=== PATIENT | female | born 1995 | race American Indian/Alaskan Native ===

== ENCOUNTER 2020-10-12 11:28 | Emergency (ER) | payer MEDICAID ==
--- NOTE | 2020-10-12 13:54 | Emergency Department Report ---
ED ENT HPI - General Chief complaint: Earache Stated complaint: LT EAR POSSIBLE INFECTION Time Seen by Provider: 10/12/20 11:42 Source: patient Mode of arrival: Ambulatory Limitations: No Limitations - History of Present Illness Initial comments: This is a 24-year-old female brought by mother nontoxic, well nourished in appearance, no acute signs of distress presents to the ED with c/o of left earache and decreased hearing x1 day. Patient denies any ear drainage. Patient denies any trauma to the area. Patient denies any mastoid tenderness or tragus tenderness. Patient denies any fever, chills, nausea, vomiting, chest pain, short of breath, headache or stiff neck. Patient denies any drug allergies or significant past medical history. MD complaint: ear pain -: days(s) Location: L ear Severity: mild Severity scale (0 -10): 8 Quality: aching Consistency: constant Improves with: none Worsens with: none Associated Symptoms: tinnitus, hearing loss. denies: fever, cough, gum swelling, toothache, pain with swallowing, sore throat, discharge from ear, rhinorrhea - Related Data Allergies Allergy/AdvReac Type Severity Reaction Status Date / Time No Known Allergies Allergy Unverified 10/12/20 11:39 ED Dental HPI - General Chief complaint: Earache Stated complaint: LT EAR POSSIBLE INFECTION Time Seen by Provider: 10/12/20 11:42 Source: patient Mode of arrival: Ambulatory Limitations: No Limitations - Related Data Allergies Allergy/AdvReac Type Severity Reaction Status Date / Time No Known Allergies Allergy Unverified 10/12/20 11:39 ED Review of Systems ROS: Stated complaint: LT EAR POSSIBLE INFECTION Other details as noted in HPI Comment: All other systems reviewed and negative Constitutional: denies: chills, fever Eyes: denies: eye pain, eye discharge, vision change ENT: hearing loss. denies: ear pain, throat pain, dental pain, epistaxis, congestion Respiratory: denies: cough, shortness of breath, wheezing Cardiovascular: denies: chest pain, palpitations Endocrine: no symptoms reported Gastrointestinal: denies: abdominal pain, nausea, diarrhea Genitourinary: denies: urgency, dysuria, discharge Musculoskeletal: denies: back pain, joint swelling, arthralgia Skin: denies: rash, lesions Neurological: denies: headache, weakness, paresthesias Psychiatric: denies: anxiety, depression Hematological/Lymphatic: denies: easy bleeding, easy bruising ED Past Medical Hx - Past Medical History Previous Medical History?: No - Surgical History Additional Surgical History: CSECTION - Social History Smoking Status: Never Smoker Substance Use Type: None ED Physical Exam - General Limitations: No Limitations General appearance: alert, in no apparent distress - Head Head exam: Present: atraumatic, normocephalic - Eye Eye exam: Present: normal appearance - Expanded ENT Exam Expanded TM/Canal exam: Cerumen Impaction: Left TM, Right TM Mouth exam: Present: normal external inspection, tongue normal. Absent: drooling, trismus, muffled voice Teeth exam: Present: normal inspection Throat exam: Positive: normal inspection. Negative: tonsillar erythema, tonsillomegaly, tonsillar exudate, R peritonsillar mass, L peritonsillar mass - Neck Neck exam: Present: normal inspection, full ROM. Absent: lymphadenopathy - Respiratory Respiratory exam: Absent: respiratory distress - Cardiovascular Cardiovascular Exam: Present: regular rate - Extremities Exam Extremities exam: Present: full ROM - Back Exam Back exam: Present: full ROM - Neurological Exam Neurological exam: Present: alert, oriented X3, normal gait - Psychiatric Psychiatric exam: Present: normal affect, normal mood - Skin Skin exam: Present: warm, dry, intact, normal color. Absent: rash ED Course - Reevaluation(s) Reevaluation #1: 10/12/20 13:52 Patient is speaking in full sentences with no signs of distress noted. ED Medical Decision Making - Medical Decision Making 24-year-old female that presents with cerumen impaction. Patient stable and was examined by me. Patient Was waiting for a room to go to fast track so I can clean the cercumen and reexamine tympanic membrane but patient was not in the waiting room. Patient was called by planer off bearer which stated that she left eloped. I was not aware of this. I did tell planer off bearer to tell the patient that she needs to come back for further valuation and treatment. Critical care attestation.: If time is entered above; I have spent that time in minutes in the direct care of this critically ill patient, excluding procedure time. ED Disposition Clinical Impression: Left ear impacted cerumen Disposition: Z- ELOPED Is pt being admited?: No Does the pt Need Aspirin: No Condition: Undetermined Time of Disposition: 13:54
[2020-10-12 13:55] VITALS: BP 104/58
== END 2020-10-12 13:41 | disposition left against medical advice (07) ==
LOC: ED 11:28
DX: H61.22 Impacted cerumen, left ear (principal); Z98.890 Other specified postprocedural states
CPT/HCPCS: 99282

== ENCOUNTER 2020-10-14 11:42 | Emergency (ER) | payer MEDICAID ==
[2020-10-14 11:55] VITALS: BP 109/57
--- NOTE | 2020-10-14 12:18 | Emergency Department Report ---
ED ENT HPI - General Chief complaint: Earache Stated complaint: EAR PAIN Time Seen by Provider: 10/14/20 12:14 Source: patient Mode of arrival: Ambulatory Limitations: No Limitations - History of Present Illness Initial comments: 24-year-old -[place] female presents to the emergency room for left ear pain x3 days. Patient states he has decreased hearing in the left ear. She denies any discharge from the ear she does state it rains. Denies any chest pain no shortness of breath no fever no chills. Currently taking vitamins. Patient is 22 weeks . Patient is being followed by [facility] MD complaint: ear pain Onset/Timin -: days(s) Location: L ear Severity scale (0 -10): 9 Quality: stabbing, aching, sharp Consistency: constant Improves with: none Worsens with: rest Associated Symptoms: tinnitus, hearing loss. denies: fever, cough, gum swelling, toothache, pain with swallowing, sore throat, discharge from ear, rhinorrhea - Related Data Previous Rx's Medication Instructions Recorded Last Taken Type Amoxicillin [Trimox CAP] 500 mg PO Q8H 7 Days #21 capsule 10/14/20 Unknown Rx Carbamide Peroxide [Ear Wax 15 ml OT ONCE #1 kit 10/14/20 Unknown Rx Removal] Allergies Allergy/AdvReac Type Severity Reaction Status Date / Time No Known Allergies Allergy Unverified 10/12/20 11:39 ED Dental HPI - General Chief complaint: Earache Stated complaint: EAR PAIN Time Seen by Provider: 10/14/20 12:14 Source: patient Mode of arrival: Ambulatory Limitations: No Limitations - Related Data Previous Rx's Medication Instructions Recorded Last Taken Type Amoxicillin [Trimox CAP] 500 mg PO Q8H 7 Days #21 capsule 10/14/20 Unknown Rx Carbamide Peroxide [Ear Wax 15 ml OT ONCE #1 kit 10/14/20 Unknown Rx Removal] Allergies Allergy/AdvReac Type Severity Reaction Status Date / Time No Known Allergies Allergy Unverified 10/12/20 11:39 ED Review of Systems ROS: Stated complaint: EAR PAIN Other details as noted in HPI Comment: All other systems reviewed and negative ED Past Medical Hx - Past Medical History Previous Medical History?: No - Surgical History Past Surgical History?: Yes Additional Surgical History: CSECTION - Social History Smoking Status: Never Smoker Substance Use Type: None - Medications Home Medications: Home Medications Medication Instructions Recorded Confirmed Last Taken Type Amoxicillin [Trimox CAP] 500 mg PO Q8H 7 Days #21 capsule 10/14/20 Unknown Rx Carbamide Peroxide [Ear Wax 15 ml OT ONCE #1 kit 10/14/20 Unknown Rx Removal] ED Physical Exam - General Limitations: No Limitations General appearance: alert, in no apparent distress - Head Head exam: Present: atraumatic, normocephalic - Eye Eye exam: Present: normal appearance - ENT ENT exam: Present: normal exam - Expanded ENT Exam Expanded TM/Canal exam: Cerumen Impaction: Right TM, Left TM - Respiratory Respiratory exam: Absent: accessory muscle use - Cardiovascular Cardiovascular Exam: Present: regular rate - GI/Abdominal GI/Abdominal exam: Present: soft, normal bowel sounds - Extremities Exam Extremities exam: Present: normal inspection - Back Exam Back exam: Present: normal inspection, full ROM - Neurological Exam Neurological exam: Present: alert, oriented X3, normal gait - Psychiatric Psychiatric exam: Present: normal affect, normal mood - Skin Skin exam: Present: warm, dry, intact, normal color. Absent: rash ED Course Vital Signs 10/14/20 11:53 Temperature 98.6 F Pulse Rate 95 H Respiratory 13 Rate Blood Pressure 109/57 O2 Sat by Pulse 99 Oximetry ED Medical Decision Making - Medical Decision Making 24-year-old -[place] female presents to the emergency room for left ear pain x3 days. Patient states he has decreased hearing in the left ear. She denies any discharge from the ear she does state it rains. Denies any chest pain no shortness of breath no fever no chills. Currently taking vitamins. Patient is 22 weeks . Patient is being followed by [facility] Bilateral cerumen impaction. Discussed with patient I will place her on amoxicillin to cover otitis media and patient is to follow-up with her senior clinical research associate for cerumen impaction removal Tylenol as needed for pain management Critical care attestation.: If time is entered above; I have spent that time in minutes in the direct care of this critically ill patient, excluding procedure time. ED Disposition Clinical Impression: Left ear impacted cerumen Disposition: DC- TO HOME OR SELFCARE Is pt being admited?: No Does the pt Need Aspirin: No Condition: Stable Instructions: Ear Drops, Adult, [id number], Ear Irrigation Additional Instructions: Complete antibiotics as prescribed. Follow-up with the senior clinical research associate. Prescriptions: Carbamide Peroxide [Ear Wax Removal] 15 ml OT ONCE #1 kit Amoxicillin [Trimox CAP] 500 mg PO Q8H 7 Days #21 capsule Referrals: NANDINI ADAMS MD [Staff Physician] - 3-5 Days Time of Disposition: 12:26
== END 2020-10-14 12:56 | disposition home or self-care (01) ==
LOC: ED 11:42
DX: O26.892 Other specified pregnancy related conditions, second trimester (principal); H61.22 Impacted cerumen, left ear; Z3A.22 22 weeks gestation of pregnancy; Z79.2 Long term (current) use of antibiotics; Z79.899 Other long term (current) drug therapy; Z98.890 Other specified postprocedural states
CPT/HCPCS: 99282